=== PATIENT | male | born 1945 | race Caucasian/White ===

== ENCOUNTER 2018-03-10 15:30 | Outpatient (RCR) | payer OTHER | END 2018-03-18 | disposition home or self-care (01) | LOC: WSPT | DX: M51.36 Other intervertebral disc degeneration, lumbar region (principal); M43.16 Spondylolisthesis, lumbar region; I69.351 Hemiplegia and hemiparesis following cerebral infarction affecting right dominant side; M25.552 Pain in left hip; M25.551 Pain in right hip; Z79.01 Long term (current) use of anticoagulants; Z79.82 Long term (current) use of aspirin; Z79.899 Other long term (current) drug therapy; Z95.1 Presence of aortocoronary bypass graft | CPT/HCPCS: G8978-GP; G8979-GP ==

== ENCOUNTER 2023-04-07 14:42 | Emergency (ER) | payer OTHER ==
[~2023-04-07] VITALS: Ht 165.1 cm; Wt 73.6 kg
[2023-04-07 14:55] VITALS: TEMP 97.9
[2023-04-07 16:31] LABS: BASO # 0.1 K/mm3 (0.0-0.2); BASO % 0.9 % (0.0-2.0); EOS # 0.7 K/mm3 (0.0-0.7); EOS % 5.5 % (0.0-4.0); GRAN # 8.8 K/mm3 (1.4-6.5); GRAN % 69.2 % (42.2-75.2); HEMATOCRIT 40.4 % (42.0-52.0); HEMOGLOBIN 12.7 g/dl (13.5-18.0); LYMPH # 1.7 K/mm3 (1.2-3.4); LYMPH % 13.6 % (20.0-51.0); MEAN CELL VOLUME 93 fl (80.0-100.0); MEAN CORPUSCULAR HEMOGLOBIN 29 pg (27-31); MEAN CORPUSCULAR HGB CONC 31 g/dl (33.0-37.0); MEAN PLATELET VOLUME 10.9 fl (7.4-10.4); MONO # 1.3 K/mm3 (0.1-0.6); MONO % 10.3 % (1.7-9.3); PLATELET COUNT 454 K/mm3 (130-400); RED BLOOD COUNT 4.34 M/mm3 (4.20-5.60); REDCELL DISTRIBUTION WIDTH-CV 13.8 % (11.5-14.5)
[2023-04-07 16:41] LABS: INR 1.7 (0.8-3.0)
[2023-04-07 16:44] LABS: ALBUMIN 3.3 gm/dL (3.4-4.8); BILIRUBIN,TOTAL 0.5 mg/dL (0.2-1.2); CALCIUM 9.6 mg/dL (8.4-10.2); CREATININE, serum 1.75 mg/dL (0.72-1.25); POTASSIUM 5.3 mmol/L (3.5-4.5)
[2023-04-07 22:15] LABS: PARTIAL THROMBOPLASTIN TIME 32.6 SECONDS (26.0-37.0)
[2023-04-07 23:07] VITALS: BP 100/73; PULSE 71
== END 2023-04-07 23:25 | disposition short-term general hospital (02) ==
LOC: COL.ER 14:42
PROVIDERS: Family Medicine
DX: I96 Gangrene, not elsewhere classified (principal); I74.3 Embolism and thrombosis of arteries of the lower extremities; Z87.891 Personal history of nicotine dependence
CPT/HCPCS: J1170; J1644; J1940; J2543; J3010; J7030